=== PATIENT | female | born 1990 | race Caucasian/White ===

== ENCOUNTER 2019-05-05 03:03 | Emergency (ER) | payer BC, SELFPAY ==
[2019-05-05 03:06] VITALS: BP 143/90; PULSE 93; RESP 22; TEMP 36.3; O2SAT 100; BMI 21.9
--- NOTE | 2019-05-05 03:22 | ED_ITS ---
Entered by Mariam Kaur, acting as scribe for Levi Varela MD May 05, 2019 03:03 HPI - SOB/Dyspnea General: Chief Complaint: Shortness of Breath/Dyspnea Stated Complaint: SOB Time Seen by Provider: 05/05/19 03:22 Source: patient Mode of arrival: ambulatory Limitations: no limitations History of Present Illness: HPI Narrative: 29 yo f came to the [facility] for sob. Pt states that she has been on steriods since the end of march. Pt states that she has been having some mild throat tightening, fever and cough. Pt states that she has a inhaler and that she uses it when it feels like her throat is closing. MD elicited complaint: shortness of breath and cough Onset (ago): week(s) Context: recent illness Severity: mild Exacerbating factors: nothing Relieving factors: nothing Associated symptoms: Reports chest congestion and cough; Deny abdominal pain, chest pain, fever(s), nausea or vomiting Related Data: Home oxygen amount: none Review of Systems General: Reports: other (negative unless marked) Const: Denies: fever, chills, body aches or change in appetite Eyes: Denies: blurry vision or eye discomfort ENMT: Denies: throat pain or dental pain Card: Denies: chest pain Resp: Reports: shortness of breath and chest congestion GI: Denies: abdominal pain, nausea, vomiting or diarrhea : Denies: painful urination Musc: Denies: neck pain or back pain Skin/Breast: Denies: rash Neuro: Denies: headache Psych: Denies: depression Oswaldo/Lymph: Denies: easy bruising All/Imm: Denies: hives PFSH ED PFSH: Statuses (acute, chronic, etc) shown below reflect problem list status as previously entered and may not be historically accurate Social History Smoking and tobacco status: never smoked Female Reproductive History: Date of last menstrual period: 05/03/19 Physical Exam Const: COMMON NORMALS: no apparent distress, oriented x3 and healthy appearing HENMT: COMMON NORMALS: normocephalic and head/scalp atraumatic HEAD & SCALP: normocephalic and atraumatic Eye: COMMON NORMALS: PERRL and EOMs intact bilaterally PUPIL: Yes PERRL Neck/C-Spine: COMMON NORMALS: full ROM and supple Chest: COMMONS NORMALS: inspection of chest normal and palpation of chest normal Resp: COMMON NORMALS: normal respiratory effort, no retractions, no use of accessory muscles and clear to auscultation bilaterally AUSCULTATION: clear to auscultation bilaterally Cardio: COMMON NORMALS: regular rate, regular rhythm and no murmurs RATE: regular rate RHYTHM: regular rhythm GI: COMMON NORMALS: normal to inspection, nondistended, normoactive bowel sounds, soft to palpation, non-tender and no masses PALPATION: Yes soft Extremity: COMMON NORMALS: normal to inspection and full ROM Neuro: COMMON NORMALS: oriented x3, moves all extremities and no focal motor deficits Psych: COMMON NORMALS: mental status grossly normal, thought process normal and cooperative THOUGHT PROCESS: normal thought process Skin: COMMON NORMALS: no rashes or lesions noted and no wounds GENERAL SKIN EXAM: no rashes or lesions noted Course Vital Signs: Vital signs: Vital Signs Temperature 97.4 F L 05/05/19 03:06 Pulse Rate 93 05/05/19 03:06 Respiratory Rate 22 H 05/05/19 03:06 Blood Pressure 143/90 05/05/19 03:06 Pulse Oximetry 100 05/05/19 03:06 MDM - SOB/Dyspnea MDM Narrative: Medical decision making narrative: Patient presents here with cough and congestion. Patient's mainly waking up with this and it could be from a postnasal drip. Patient is well-appearing here and has no signs of pulmonary embolism or cardiac cause. Patient's x-ray shows no pneumonia. She feels improved. Instructed her to start taking Benadryl along with decongestant. She is to follow-up with primary care doctor and return if worsening. Lab Data: Labs: Lab Results 05/05/19 05/05/19 Range/Units 03:50 03:50 WBC 4.2 (4.0-10.0) 10^3/ uL RBC 4.78 (4.1-5.3) 10^6/u L Hgb 14.4 (11.5-15.3) g/dL Hct 41.8 (37.0-47.0) % MCV 87.4 (81-99) fL MCH 30.1 (28.0-34.0) pg MCHC 34.4 (30.0-36.0) g/dL RDW 12.5 (12.1-15.1) % Plt Count 323 (130-400) 10^3/c mm MPV 10.5 H (7.4-10.4) fL Neut % (Auto) 59.5 % Lymph % (Auto) 24.1 % [place] % (Auto) 14.6 % Eos % (Auto) 1.4 % Baso % (Auto) 0.2 % Neut # (Auto) 2.5 (1.8-7.7) 10^3/u L Lymph # (Auto) 1.0 (0.8-4.8) 10^3/u L [place] # (Auto) 0.6 (0.2-0.9) 10^3/u L Eos # (Auto) 0.1 (0.0-0.8) 10^3/u L Baso # (Auto) 0.0 (0.0-0.1) 10^3/u L Nucleated RBC % (a uto) 0 % Nucleated RBCs # 0.0 /100WBC Sodium 142 (136-145) mmol/L Potassium 3.5 (3.5-5.1) mmol/L Chloride 102 (98-107) mmol/L Carbon Dioxide 22 (22-29) mmol/L Anion Gap 21.5 H (5-19) BUN 8 (6-20) mg/dL Creatinine 0.7 (0.5-0.9) mg/dL GFR Calculation 100.4 (90-130) mL/min Glucose 106 (65-115) mg/dL Calculated Osmolal ity 290 (285-295) mOsm/k g Calcium 10.3 (8.5-10.5) mg/dL Imaging Data^: CXR: Attestation: I personally reviewed and interpreted this imaging study as follows: My impression: no acute abnormality xr soft tissue neck: Attestation: I personally reviewed and interpreted this imaging study as follows: My impression: no acute abnormality EKG Data^: EKG 1: Attestation: I personally reviewed and interpreted this EKG as follows: EKG Interpretation Date: 05/05/19 EKG interpretation time: 03:56 Interpretation: nsr hr [address] or t wave abnormalities qrs 86 qtc 417 Discharge Plan Discharge Patient Disposition: Home, Self-Care Clinical Impression: Acute upper respiratory infection, Dyspnea Condition: Stable Discharge Orders: Discharge Order (Routine); Ordered 05/05/19 Ordered By: Levi Varela Referrals: [facility] [Other] Discharge Diet: Advance as tolerated Discharge Activity: Resume usual activity Patient Instructions: Upper Respiratory Infection (ED) Coding Level of Care Code ED Psychology Assistant for Chg Fwd Exam Problem Focused The documentation recorded by the Vincent stearns Stephanie Lyn, accurately reflects the service I personally performed and the decisions made by Nichole parrish Korby, MD May 05, 2019 03:03
--- NOTE | 2019-05-05 03:29 | ECG_ITS ---
Measurements Intervals Abie Rate: 94 P: 12 LA: 129 QRS: 60 QRSD: 86 T: 60 QT: 365 QTc: 457 SINUS RHYTHM Compared to ECG 06/28/2017 10:13:48 Sinus tachycardia no longer present ST (T wave) deviation no longer present Electronically Signed On 05-05-2019 19:53:42 FINANCIAL RESERVE CLERK by Demi Braga M.D. [email or web address]
--- NOTE | 2019-05-05 03:29 | XRR_ITS ---
PROCEDURE INFORMATION: Exam: XR Soft Tissue Neck Exam date and time: 05/05/2019 4:08 AM Age: 29 years old Clinical indication: Dyspnea / difficulty breathing; Additional info: SOB TECHNIQUE: Imaging protocol: XR of the soft tissues of the neck. COMPARISON: CR Cervical Spine AP/Lat* [id number] 07/31/2018 3:32 PM FINDINGS: Airway: Normal. No abnormal narrowing. Soft tissues: Normal. Normal epiglottis. Bones/joints: Unremarkable. XR/XR soft tissue neck [id number] IMPRESSION: No acute findings.
--- NOTE | 2019-05-05 03:29 | XR_ITS ---
WS: [id number] Chest 2 views, 05/05/2019 day Clinical Data: cough Comparison: PA and lateral chest, 11/29/2017. Findings: No nodules, masses or effusions are seen. The heart is normal. The pulmonary vascularity is not increased. No pneumonia or pneumothorax is seen. XR/XR chest 2V* [id number] Impression: Negative chest.
[2019-05-05 04:18] LABS: Basophils % 0.2 %; Eosinophils # 0.1 10^3/uL (0.0-0.8); Eosinophils % 1.4 %; Hematocrit 41.8 % (37.0-47.0); Hemoglobin 14.4 g/dL (11.5-15.3); Lymphocytes % 24.1 %; Mean Corpuscular HGB Conc 34.4 g/dL (30.0-36.0); Mean Corpuscular Hemoglobin 30.1 pg (28.0-34.0); Mean Corpuscular Volume 87.4 fL (81-99); Mean Platelet Volume 10.5 fL (7.4-10.4); Monocytes # 0.6 10^3/uL (0.2-0.9); Monocytes % 14.6 %; Neutrophils # 2.5 10^3/uL (1.8-7.7); Neutrophils % 59.5 %; Nucleated Red Blood Cells % 0 %; Platelet Count 323 10^3/cmm (130-400); Red Blood Count 4.78 10^6/uL (4.1-5.3); Red Cell Distribution Width 12.5 % (12.1-15.1); White Blood Count 4.2 10^3/uL (4.0-10.0)
[2019-05-05 04:23] LABS: Anion Gap 21.5 (5-19); Blood Urea Nitrogen 8 mg/dL (6-20); Calcium 10.3 mg/dL (8.5-10.5); Carbon Dioxide 22 mmol/L (22-29); Chloride 102 mmol/L (98-107); Glomerular Filtration Rate 100.4 mL/min (90-130); Glucose 106 mg/dL (65-115); Osmolality Calculated 290 mOsm/kg (285-295); Potassium 3.5 mmol/L (3.5-5.1); Sodium 142 mmol/L (136-145)
== END 2019-05-05 05:26 | disposition home or self-care (01) ==
PROVIDERS: Emergency Provider Emergency Medicine
DX: J06.9 Acute upper respiratory infection, unspecified (principal)
CPT/HCPCS: 70360; 71046; 80048; 85025; 93005; 99282; 99284

== ENCOUNTER 2019-08-25 10:57 | Outpatient (CLI) | payer BC, SELFPAY ==
--- NOTE | 2019-08-25 13:07 | PFTS_ITS ---
Date of Study:08/25/19 Date of Dictation: MECHANICS: Forced vital capacity (FVC) is normal. Forced expiratory volume in one second (FEV1) is normal. FEV1/FVC is normal. FLOW VOLUME LOOP: Normal. LUNG VOLUMES: Not performed DIFFUSING CAPACITY FOR CARBON MONOXIDE: Not performed. INTERPRETATION: The spirometry is normal. MTDD
== END 2019-08-25 10:58 | disposition home or self-care (01) ==
LOC: RT 11:02
PROVIDERS: PCP Family Medicine; Visit Provider Specialist
DX: R05 Cough (principal); J06.9 Acute upper respiratory infection, unspecified; J30.1 Allergic rhinitis due to pollen
CPT/HCPCS: 94010

== ENCOUNTER → 2019-12-09 11:05 | Outpatient (BNVA) | payer BC, SELFPAY | PROVIDERS: PCP Family Medicine; Visit Provider Nurse Practitioner Women's Health | DX: Z11.3 Encounter for screening for infections with a predominantly sexual mode of transmission (principal) | CPT/HCPCS: 87491; 87591; 87661; 88175 ==

== ENCOUNTER → 2021-10-24 10:03 | Outpatient (BNVA) | payer OTHER, SELFPAY | PROVIDERS: PCP Family Medicine; Visit Provider Nurse Practitioner Women's Health | DX: Z01.419 Encounter for gynecological examination (general) (routine) without abnormal findings (principal); N92.3 Ovulation bleeding; N90.7 Vulvar cyst | CPT/HCPCS: 84443; 87491; 87591; 87661 ==

== ENCOUNTER → 2021-10-30 15:43 | Outpatient (BNVA) | payer OTHER, SELFPAY | PROVIDERS: PCP Family Medicine; Visit Provider Nurse Practitioner Women's Health | DX: N92.3 Ovulation bleeding (principal); N85.4 Malposition of uterus | CPT/HCPCS: 76830 ==

== ENCOUNTER → 2021-11-09 15:51 | Outpatient (BNVA) | payer OTHER, SELFPAY | PROVIDERS: PCP Family Medicine; Visit Provider Nurse Practitioner Women's Health | DX: Z01.419 Encounter for gynecological examination (general) (routine) without abnormal findings (principal); N92.3 Ovulation bleeding | CPT/HCPCS: 87624 ==

== ENCOUNTER → 2022-03-06 14:51 | Outpatient (BNVA) | payer OTHER, SELFPAY | PROVIDERS: PCP Family Medicine; Visit Provider Family Medicine | DX: R30.0 Dysuria (principal); K52.9 Noninfective gastroenteritis and colitis, unspecified | CPT/HCPCS: 81000 ==

== ENCOUNTER → 2022-04-19 15:23 | Outpatient (BNVA) | payer OTHER, SELFPAY | PROVIDERS: PCP Family Medicine; Visit Provider Family Medicine | DX: R39.9 Unspecified symptoms and signs involving the genitourinary system (principal) | CPT/HCPCS: 81000 ==

== ENCOUNTER 2022-05-16 07:51 | Outpatient (CLI) | payer OTHER, SELFPAY ==
--- NOTE | 2022-05-16 08:00 | US_ITS ---
WS: [id number] Complete ABDOMINAL ULTRASOUND HISTORY: abd pain; just right of the umbilicus COMPARISON: 06/24/2017 Liver: 13.9 cm in length. Liver is normal size and echogenicity with no mass or intrahepatic dilatati on. Portal Vein: Normal hepatopetal flow with monophasic waveform. Gallbladder: Prior cholecystectomy. Pancreas: Normal size and echogenicity. CBD: 0.3 cm. Right kidney: 10.5 cm x 5.5 cm x 4.7 cm. No mass, cortical thickening or hydronephrosis. Left kidney: 10.0 cm x 4.9 cm x 4.1 cm. No mass, cortical thickening or hydronephrosis. Spleen: Normal size and echogenicity. Abdominal aorta and IVC are within normal limits. No ascites. US/US abdomen complete* [id number] IMPRESSION: 1. Prior cholecystectomy. 2. Normal liver. 3. No bile duct dilatation or hydronephrosis.
== END 2022-05-16 07:52 | disposition home or self-care (01) ==
LOC: RAD 07:51
PROVIDERS: PCP Family Medicine; Visit Provider Family Medicine
DX: R10.9 Unspecified abdominal pain (principal)
CPT/HCPCS: 76700; 81000

== ENCOUNTER → 2022-11-15 13:00 | Outpatient (BNVA) | payer OTHER, SELFPAY | PROVIDERS: PCP Family Medicine; Visit Provider Nurse Practitioner Women's Health | DX: Z12.4 Encounter for screening for malignant neoplasm of cervix (principal); Z01.419 Encounter for gynecological examination (general) (routine) without abnormal findings; N92.3 Ovulation bleeding; N89.8 Other specified noninflammatory disorders of vagina; R87.810 Cervical high risk human papillomavirus (HPV) DNA test positive | CPT/HCPCS: 87624 ==

== ENCOUNTER → 2023-11-21 11:00 | Outpatient (BNVA) | payer OTHER, SELFPAY | PROVIDERS: PCP Family Medicine; Visit Provider Nurse Practitioner Women's Health | DX: R87.810 Cervical high risk human papillomavirus (HPV) DNA test positive (principal) | CPT/HCPCS: 87624 ==